=== PATIENT | female | born 1950 | race Caucasian/White ===

== ENCOUNTER 2017-04-02 17:25 | Inpatient (IN) | payer OTHER ==
[2017-04-02] MEDS ORDERED: Bisacodyl 10 MG Supp RECTAL PRN (17:54)
[2017-04-02] MEDS: Acetaminophen 325 MG Tab PO PRN (18:44)
[2017-04-02] MEDS ORDERED: Docusate Sodium 100 MG Cap PO PRN (18:49)
[2017-04-02] MEDS ORDERED: Morphine 2 MG/ML Syringe IVPUSH PRN (18:54)
[2017-04-02] MEDS ORDERED: Piperacillin/Tazobactam 3.375 GM in Sodium Chloride 0.9% 100 ML IV SCH (19:00)
[2017-04-02] MEDS: Piperacillin/Tazobactam 3.375 GM in Sodium Chloride 0.9% 100 ML IV SCH (20:40)
[2017-04-02] MEDS: oxyCODONE 5 MG Tab PO PRN (21:10)
[2017-04-03] MEDS: oxyCODONE 5 MG Tab PO PRN ×5 (01:06→21:26)
[2017-04-03] MEDS: Piperacillin/Tazobactam 3.375 GM in Sodium Chloride 0.9% 100 ML IV SCH ×4 (02:01→20:12)
--- NOTE | 2017-04-03 04:14 | HP ---
CHIEF COMPLAINT: Abdominal pain. BRIEF HISTORY OF PRESENT ILLNESS: Ms. Anju Leyva is a 66-year-old female who was seen by her primary care provider, Shakira Wilson NP, at clinic today. She presented with abdominal pain, mostly right lower quadrant, in the pelvic area. She said that this has been going on for the last 2 weeks and described as "it hurts" and was able to qualify any further. She denied any other associated symptoms. Ms. Wilson obtained a CT scan of the abdomen and pelvis with IV contrast. This study demonstrated numerous diverticula in the sigmoid colon with what appeared to be "dirty" fat with small amount of free fluid in the dependent cul-de-sac midline. There is an area of new abnormal appearance in this pubic symphysis when compared to previous study from 10/31/2016. Radiologist questioned whether this could be reinfection or postinflammatory scarring and osteonecrosis. There is multilevel thoracic and thoracolumbar disk disease. Labs were obtained before she was referred to the ER. White count was 11,300, hemoglobin and hematocrit were stable, platelets were normal. Comprehensive profile showed normal electrolytes. BUN and creatinine were 16 and 1.0 with a GFR of 56. Urinalysis was unremarkable. PAST MEDICAL HISTORY: Obesity. She had an episode of atrial fibrillation with RVR during surgery in November of 2015. She has history of coronary artery disease with an NSTEMI based on elevated cardiac enzymes. This atrial fibrillation with RVR happened during a procedure. 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 History of positive C. difficile toxin, November of 2015. PAST SURGICAL HISTORY: Cholecystectomy, tonsillectomy, upper and lower endoscopy. IMMUNIZATION HISTORY: Her last flu vaccine was on 07/22/2016. She received the shingles vaccine on 05/08/2016. She has never had any of the pneumococcal vaccines. SOCIAL HISTORY: She has never smoked. She does not drink alcohol on a regular basis. 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 She has been working she said for about 40 years. She went to school she is single and has no children. She did not serve in the . FAMILY HISTORY: She grew up in [facility]. Father with congestive heart failure. Mother was healthy until she developed Alzheimer's like dementia. She has one sister who had Crohn's disease, and one sister who is in good health and only has complaints of migraine. REVIEW OF SYSTEMS: She describes her pain as "it hurts", cannot qualify it any further. She has had no nausea, no vomiting. She occasionally felt cold. No blood by mouth or rectum. No chest pain or shortness of breath. No orthopnea. No recent falls or injuries. No recent use of antibiotics. No cough, sore throat, fever, or rash. PHYSICAL EXAMINATION: Vital Signs: Blood pressure 150/72, pulse 76, respiratory rate 18, oxygen saturation 99% on room air. Weight 245 pounds, height 5 feet 3 inches. HEENT: Unremarkable. ENT was clear. Chest: Showed clear but diminished bilateral breath sounds. Heart: Showed regular rate and rhythm. Abdomen: Obese, soft, benign, with mild tenderness in the upper epigastric area. Otherwise, no guarding or rebound. Extremities: Showed the legs to be heavy with some chronic edema. Neurological: She is intact. LABORATORY AND X-RAY DATA: Labs and x-rays were performed prior to admission as above. MEDICATION LIST: Please see [facility] for complete medication list. IMPRESSION: 1. Recurrent abdominal pain in this lady with previous history of osteomyelitis of the symphysis pubis. She was admitted to [facility] in [place] for an extended stay and was followed by Infectious Disease. 2. We have ordered an MRI of the pelvis to be performed tomorrow morning. It cannot be done with contrast as she received IV contrast for the CT scan today and the gadolinium cannot be given within 48 hours. 3. CLARE hose will be placed for VTE prophylaxis and she was started on enoxaparin 40 mg daily. 4. She has a history of atrial fibrillation with rapid ventricular rate, and her diltiazem will be continued. 5. When we told her that we were planning an MRI in the morning, she stated that she could not tolerate being in the tube. We explained to her that she will be going in feet first for the abdominal view. She will also be given headphone to listen to, and we ordered 5 mg lorazepam to be given in the morning to see if that will help her calm down somewhat. 6. Her usual medications will be continued. 7. Code status: Full code. CONDITION AT THE TIME OF ADMISSION: Hemodynamically stable. [facility] /[id number]
[2017-04-03] MEDS ORDERED: LORazepam 0.5 MG Tab PO ONE (07:15)
[2017-04-03] MEDS: Diltiazem 180 MG Cap.CD PO SCH (09:19)
[2017-04-03] MEDS: Enoxaparin 40 MG/0.4 ML Syringe SUBCUT SCH (09:20)
[2017-04-03] MEDS: Acetaminophen 325 MG Tab PO PRN (09:20)
[2017-04-03 09:41] LABS: CHLORIDE,CL 102 mmol/L (98-109); SODIUM,NA 140 mmol/L (138-146)
[2017-04-03] MEDS ORDERED: Potassium Chloride 10 MEQ Tab.ER PO ONE (11:48)
--- NOTE | 2017-04-03 13:35 | PCM.PN ---
- General Info Date of Service: 04/03/17 Admission Dx/Problem (Free Text): Diverticulitis Subjective Update: Patient presented with marked right flank and lower abdomen pain without urinary symptoms, nausea, vomiting, fever, diarrhea, blood in stool, black stool , any others symptoms other than chronic intermittent chills. Patient stated that the chills started after she had her pubic infection in November 2015. Today patient denies fever, chills, nausea, vomiting, diarrhea, any new symptoms. She is still having right flank pain and lower abdominal pain. She is still requiring oxycodone for pain control. - Patient Data Vitals - Most Recent: Last Vital Signs Temp 36.3 C 04/03/17 08:00 Pulse 72 04/03/17 08:00 Resp 20 04/03/17 08:00 BP 132/68 04/03/17 08:00 Pulse Ox 99 04/03/17 08:00 Weight - Most Recent: 111.13 kg I&O - Last 24 Hours: Intake & Output 04/02/17 04/03/17 04/03/17 22:59 06:59 14:59 Intake Total 104 109 120 Output Total 200 225 Balance -96 -116 120 Lab Results Last 24 Hours: Laboratory Results - last 24 hr 04/03/17 04/03/17 04/03/17 Range/Units 09:10 09:10 09:10 WBC 7.7 (5.0-10.0) 10^3/uL RBC 4.32 (4.2-5.4) 10^6/uL Hgb 12.3 D (12.0-16.0) g/dL Hct 37.4 (37.0-47.0) % MCV 86.6 D (80-100) fL MCH 28.5 (27.0-34.0) pg MCHC 32.9 L (33.0-35.0) g/dL Plt Count 258 (150-450) 10^3/uL ESR 31 H (0-20) mm/hr Sodium 140 (138-146) mmol/L Potassium 3.1 L (3.5-4.9) mmol/L Chloride 102 (98-109) mmol/L Carbon Dioxide 25 (24-29) mmol/L Anion Gap 16.1 BUN 13 (8-26) mg/dL Creatinine 0.8 (0.6-1.3) mg/dL Est Cr Clr Drug Dosing 58.77 mL/min Estimated GFR (MDRD) > 60 Glucose 115 H (70-105) mg/dL Calcium 1.17 C-Reactive Protein 11.0 H (0.0-1.3) mg/dL Med Orders - Current: Current Medications Acetaminophen (Tylenol) 650 mg PO Q4H PRN PRN Reason: Pain (mild 1-3 )/fever Last Admin: 04/03/17 09:20 Dose: 650 mg Bisacodyl (Dulcolax) 10 mg RECTAL DAILY PRN PRN Reason: Constipation Diltiazem HCl (Cardizem Cd) 180 mg PO DAILY [facility] Last Admin: 04/03/17 09:19 Dose: 180 mg Docusate Sodium (Colace) 100 mg PO Q48H PRN PRN Reason: Constipation Enoxaparin Sodium (Lovenox) 40 mg SUBCUT DAILY [facility] Last Admin: 04/03/17 09:20 Dose: 40 mg Piperacillin Sod/Tazobactam (Sod 3.375 gm/ Sodium Chloride) 100 mls @ 200 mls/ hr IV Q6H [facility] Last Infusion: 04/03/17 09:22 Dose: Infused Oxycodone HCl (Oxycodone) 5 mg PO Q4H PRN PRN Reason: Abdominal Pain Last Admin: 04/03/17 12:44 Dose: 5 mg Sodium Chloride (Saline Flush) 10 ml FLUSH ASDIRECTED PRN PRN Reason: Keep Vein Open Discontinued Medications Piperacillin Sod/Tazobactam (Sod 3.375 gm/ Sodium Chloride) 100 mls @ 200 mls/ hr IV Q6H [facility] Last Infusion: 04/02/17 20:40 Dose: Infused Lorazepam (Ativan) 0.5 mg PO ONETIME ONE Stop: 04/03/17 07:16 Last Admin: 04/03/17 07:09 Dose: 0.5 mg Morphine Sulfate (Morphine) 2 mg IVPUSH Q4H PRN PRN Reason: Pain Last Admin: 04/02/17 19:41 Dose: 2 mg Potassium Chloride (Klor-Con 10) 40 meq PO ONETIME ONE Stop: 04/03/17 11:49 Last Admin: 04/03/17 12:45 Dose: 40 meq - Exam General: Alert, Oriented, Cooperative, No Acute Distress. No: Severe Distress, Sedated, Lethargic, Obtunded HEENT: Pupils Equal, Pupils Reactive, EOMI, Mucous Membr. Moist/Hepburn Neck: Supple, Trachea Midline, No JVD Lungs: Clear to Auscultation, Normal Respiratory Effort Cardiovascular: Regular Rate, Regular Rhythm GI/Abdominal Exam: Soft, No Distention, No Mass, Tender (Lower abdomen), Other ( Overall difficult to assess due to body habitus) (Female) Exam: Deferred Back Exam: Normal Inspection, Full Range of Motion, CVA Tenderness (R). No: CVA Tenderness (L) Extremities: Normal Inspection, Normal Range of Motion, Non-Tender, No Pedal Edema, Normal Capillary Refill Skin: Warm, Dry, Intact Neurological: No New Focal Deficit Psy/Mental Status: Alert, Normal Affect, Normal Mood - Problem List & Annotations (1) Diverticulitis SNOMED Code(s): 980908263 Code(s): K57.92 - DVTRCLI OF INTEST, PART UNSP, W/O PERF OR ABSCESS W/O BLEED Status: Acute Current Visit: Yes (2) HTN, Benign essential hypertension SNOMED Code(s): 9935190 Code(s): I10 - ESSENTIAL (PRIMARY) HYPERTENSION Status: Chronic Current Visit: No (3) Atrial fibrillation SNOMED Code(s): 29277091 Code(s): I48.91 - UNSPECIFIED ATRIAL FIBRILLATION Status: Chronic Current Visit: Yes (4) History of non-ST elevation myocardial infarction (NSTEMI) SNOMED Code(s): 574871779 Code(s): I25.2 - OLD MYOCARDIAL INFARCTION Status: Chronic Current Visit : Yes - Problem List Review Problem List Initiated/Reviewed/Updated: Yes - My Orders Last 24 Hours: My Active Orders 04/03/17 08:51 Blood Culture x2 Reflex Set [OM.PC] Stat 04/03/17 09:10 CULTURE BLOOD [BC] Stat 04/03/17 09:15 CULTURE BLOOD [BC] Stat 04/03/17 11:07 CULTURE URINE [RM] Routine - Plan Plan:: Impression Lower Abdominal pain Diverticulitis Hypertension History of atrial fibrillation History of Coronary artery disease Plan: CT scan reported diverticulitis. There was concern about recurrent pubic osteomyelitis MRI was done to rule out recurrent pubic symphysis osteomyelitis. MRI reported or osteitis pubis (none-infectious inflammation) Patient was started on Zosyn I spoke to Dr. Hammer, infectious disease specialist from [place] who recommended continuing Zosyn until pain improves, possibly 4-5 days. Then oral Levaquin 750 mg by mouth every 12 hours and Flagyl 800 mg by mouth every 8 hours for total of 14 days of antibiotics -Patient is still requiring oxycodone for her pain Continue clear liquid diet Continue diltiazem for history of atrial fibrillation and hypertension Continue atorvastatin for history of coronary artery disease Continue Lovenox for DVT prophylaxis
[2017-04-03] MEDS ORDERED: Acetaminophen/HYDROcodone 325-10 MG Tab PO PRN (13:58)
[2017-04-03] MEDS: Sodium Chloride 0.9% 10 ML Syringe FLUSH PRN (20:12)
[2017-04-03] MEDS: atorvaSTATin 20 MG Tab PO SCH (20:12)
[2017-04-04] MEDS: Piperacillin/Tazobactam 3.375 GM in Sodium Chloride 0.9% 100 ML IV SCH ×4 (02:59→20:05)
[2017-04-04] MEDS: Sodium Chloride 0.9% 10 ML Syringe FLUSH PRN ×5 (02:59→20:05)
[2017-04-04] MEDS: oxyCODONE 5 MG Tab PO PRN ×3 (04:06→20:04)
[2017-04-04] MEDS: Multivitamins,Therapeutic Tab PO SCH (09:01)
[2017-04-04] MEDS: Diltiazem 180 MG Cap.CD PO SCH (09:01)
[2017-04-04] MEDS: Enoxaparin 40 MG/0.4 ML Syringe SUBCUT SCH (09:01)
--- NOTE | 2017-04-04 10:47 | PCM.PN ---
- General Info Date of Service: 04/04/17 Admission Dx/Problem (Free Text): Diverticulitis Subjective Update: Patient was directly admitted from [facility] in [place], [place] with marked right flank and lower abdomen pain without urinary symptoms, nausea, vomiting, fever, diarrhea, blood in stool, black stool, any others symptoms other than chronic intermittent chills. Patient stated that the chills started after she had her pubic infection in November 2015. Blood WBC 11,300. Creatinine 1.0. Urinalysis reported moderate leukocyte esterase and blood, microscope reported 5 -10 WBCs 5-[address] abdomen and pelvis with contrast reported numerous diverticula in the sigmoid colon with what appeared to be dirty fat with small amount of free fluid in the dependent all the sac midline. And radiologist had concern of reinfected pubic symphysis. 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 Patient was started initially on Zosyn on day of admission. I counseled with Dr. Hammer, infectious disease specialist from [place] over the phone who recommended continuing Zosyn until pain improves, possibly 4-5 days. Then oral Levaquin 750 mg by mouth every 12 hours and Flagyl 500 mg by mouth every 8 hours for total of 14 days of antibiotics Urine culture was done prior to starting the antibiotic. Blood cultures was done next day after starting antibiotic. Today patient denies fever, chills, nausea, vomiting, diarrhea, any new symptoms. She stated that her flank and lower abdominal pain are better. She'll still feeling weak. She denies getting worse. She is still requiring less oxycodone for pain control. - Patient Data Vitals - Most Recent: Last Vital Signs Temp 37.4 C 04/04/17 07:54 Pulse 61 04/04/17 07:54 Resp 20 04/04/17 07:54 BP 130/59 L 04/04/17 07:54 Pulse Ox 99 04/04/17 07:54 Weight - Most Recent: 111.13 kg I&O - Last 24 Hours: Intake & Output 04/03/17 04/04/17 04/04/17 22:59 06:59 14:59 Intake Total 340 200 392 Balance 340 200 392 Jef Results Last 24 Hours: Microbiology 04/03/17 09:15 Aerobic Blood Culture - Preliminary Blood - Venous - Lab Draw NO GROWTH AFTER 1 DAY Anaerobic Blood Culture - Preliminary NO GROWTH AFTER 1 DAY 04/03/17 09:10 Aerobic Blood Culture - Preliminary Blood - Venous NO GROWTH AFTER 1 DAY Anaerobic Blood Culture - Preliminary NO GROWTH AFTER 1 DAY 04/02/17 14:59 Urine Culture - Preliminary Urine, Voided Med Orders - Current: Current Medications Acetaminophen (Tylenol) 650 mg PO Q4H PRN PRN Reason: Pain (mild 1-3 )/fever Last Admin: 04/03/17 09:20 Dose: 650 mg Hydrocodone Bitart/Acetaminophen (Holabird 325-10 Mg) 1 tab PO Q6H PRN PRN Reason: Pain (moderate 4-6) Atorvastatin Calcium (Lipitor) 80 mg PO BEDTIME [facility] Last Admin: 04/03/17 20:12 Dose: 80 mg Bisacodyl (Dulcolax) 10 mg RECTAL DAILY PRN PRN Reason: Constipation Diltiazem HCl (Cardizem Cd) 180 mg PO DAILY [facility] Last Admin: 04/04/17 09:01 Dose: 180 mg Docusate Sodium (Colace) 100 mg PO Q48H PRN PRN Reason: Constipation Enoxaparin Sodium (Lovenox) 40 mg SUBCUT DAILY [facility] Last Admin: 04/04/17 09:01 Dose: 40 mg Piperacillin Sod/Tazobactam (Sod 3.375 gm/ Sodium Chloride) 100 mls @ 200 mls/ hr IV Q6H [facility] Last Infusion: 04/04/17 09:49 Dose: Infused Multivitamins (Thera) 1 each PO DAILY [facility] Last Admin: 04/04/17 09:01 Dose: 1 each Oxycodone HCl (Oxycodone) 5 mg PO Q4H PRN PRN Reason: Abdominal Pain Last Admin: 04/04/17 04:06 Dose: 5 mg Sodium Chloride (Saline Flush) 10 ml FLUSH ASDIRECTED PRN PRN Reason: Keep Vein Open Last Admin: 04/04/17 09:50 Dose: 10 ml Discontinued Medications Piperacillin Sod/Tazobactam (Sod 3.375 gm/ Sodium Chloride) 100 mls @ 200 mls/ hr IV Q6H [facility] Last Infusion: 04/02/17 20:40 Dose: Infused Lorazepam (Ativan) 0.5 mg PO ONETIME ONE Stop: 04/03/17 07:16 Last Admin: 04/03/17 07:09 Dose: 0.5 mg Morphine Sulfate (Morphine) 2 mg IVPUSH Q4H PRN PRN Reason: Pain Last Admin: 04/02/17 19:41 Dose: 2 mg Oxycodone HCl (Oxycodone) 5 mg PO Q4H PRN PRN Reason: Abdominal Pain Last Admin: 04/03/17 12:44 Dose: 5 mg Potassium Chloride (Klor-Con 10) 40 meq PO ONETIME ONE Stop: 04/03/17 11:49 Last Admin: 04/03/17 12:45 Dose: 40 meq - Exam General: Alert, Oriented, Cooperative, No Acute Distress, Other (She is still having ill-looking. Slightly better than yesterday). No: Severe Distress, Sedated, Lethargic, Obtunded HEENT: Pupils Equal, Pupils Reactive, EOMI, Mucous Membr. Moist/Protivin Neck: Supple, Trachea Midline, No JVD Lungs: Clear to Auscultation, Normal Respiratory Effort Cardiovascular: Regular Rate, Regular Rhythm GI/Abdominal Exam: Normal Bowel Sounds, Soft, No Organomegaly, No Distention, No Mass, Tender (In lower abdomen) (Female) Exam: Deferred Back Exam: Normal Inspection, Full Range of Motion, CVA Tenderness (R) (Less tender than yesterday). No: CVA Tenderness (L) Extremities: Normal Inspection, Normal Range of Motion, Non-Tender, No Pedal Edema, Normal Capillary Refill Skin: Warm, Dry, Intact Neurological: No New Focal Deficit Psy/Mental Status: Alert, Normal Affect, Normal Mood - Problem List & Annotations (1) Diverticulitis SNOMED Code(s): 726904452 Code(s): K57.92 - DVTRCLI OF INTEST, PART UNSP, W/O PERF OR ABSCESS W/O BLEED Status: Acute Current Visit: Yes (2) HTN, Benign essential hypertension SNOMED Code(s): 6706464 Code(s): I10 - ESSENTIAL (PRIMARY) HYPERTENSION Status: Chronic Current Visit: No (3) Atrial fibrillation SNOMED Code(s): 91616773 Code(s): I48.91 - UNSPECIFIED ATRIAL FIBRILLATION Status: Chronic Current Visit: Yes (4) History of non-ST elevation myocardial infarction (NSTEMI) SNOMED Code(s): 393590051 Code(s): I25.2 - OLD MYOCARDIAL INFARCTION Status: Chronic Current Visit : Yes (5) Hypokalemia SNOMED Code(s): 45811371 Code(s): E87.6 - HYPOKALEMIA Status: Acute Current Visit: Yes - Problem List Review Problem List Initiated/Reviewed/Updated: Yes - My Orders Last 24 Hours: My Active Orders 04/03/17 11:07 CULTURE URINE [RM] Routine 04/03/17 13:58 Acetaminophen/HYDROcodone [Holabird 325-10 MG] 1 tab PO Q6H PRN oxyCODONE 5 mg PO Q4H PRN 04/03/17 14:54 Cooling Warming Measures [RC] .PRN K Pad [Heat Therapy] [OM.PC] Routine 04/03/17 21:00 atorvaSTATin [Lipitor] 80 mg PO BEDTIME 04/04/17 09:00 Multivitamins,Therapeutic [Thera] 1 each PO DAILY 04/04/17 10:32 BASIC METABOLIC PANEL,BMP [CHEM] Routine CBC WITH AUTO DIFF [HEME] Routine CRP [C-REACTIVE PROTEIN] [CHEM] Routine 04/04/17 Lunch Full Liquid Diet [DIET] - Plan Plan:: Impression Active problem list Lower Abdominal pain Diverticulitis Hypokalemia Chronic problem list Hypertension History of atrial fibrillation History of Coronary artery disease Plan: CT scan reported diverticulitis. There was concern about recurrent pubic osteomyelitis MRI was done to rule out recurrent pubic symphysis osteomyelitis. MRI reported or osteitis pubis (none-infectious inflammation) Patient was started on Zosyn I spoke to Dr. Hammer, infectious disease specialist from [place] who recommended continuing Zosyn until pain improves, possibly 4-5 days. Then oral Levaquin 750 mg by mouth every 12 hours and Flagyl 500 mg by mouth every 8 hours for total of 14 days of antibiotics -Patient is still requiring oxycodone for her pain, but less frequently -change clear liquid diet to full liquid diet -Patient received oral potassium chloride 40 mEq yesterdah -Repeat lab tomorrow Continue diltiazem for history of atrial fibrillation and hypertension Continue atorvastatin for history of coronary artery disease Continue Lovenox for DVT prophylaxis
[2017-04-04] MEDS: atorvaSTATin 20 MG Tab PO SCH (20:04)
[2017-04-05] MEDS: Piperacillin/Tazobactam 3.375 GM in Sodium Chloride 0.9% 100 ML IV SCH ×4 (02:55→20:25)
[2017-04-05] MEDS: Sodium Chloride 0.9% 10 ML Syringe FLUSH PRN ×2 (02:55→08:00)
[2017-04-05 06:52] LABS: CHLORIDE,CL 105 mmol/L (101-111); SODIUM,NA 140 mmol/L (135-145)
[2017-04-05] MEDS: Diltiazem 180 MG Cap.CD PO SCH (08:00)
[2017-04-05] MEDS: Multivitamins,Therapeutic Tab PO SCH (08:00)
[2017-04-05] MEDS: Enoxaparin 40 MG/0.4 ML Syringe SUBCUT SCH (08:00)
--- NOTE | 2017-04-05 09:31 | PCM.PN ---
- General Info Date of Service: 04/05/17 Admission Dx/Problem (Free Text): Diverticulitis Subjective Update: Patient was directly admitted from [facility] in [place], [place] with marked right flank and lower abdomen pain without urinary symptoms, nausea, vomiting, fever, diarrhea, blood in stool, black stool, any others symptoms other than chronic intermittent chills. Patient stated that the chills started after she had her pubic infection in November 2015. Blood WBC 11,300. Creatinine 1.0. Urinalysis reported moderate leukocyte esterase and blood, microscope reported 5 -10 WBCs 5-[address] abdomen and pelvis with contrast reported numerous diverticula in the sigmoid colon with what appeared to be dirty fat with small amount of free fluid in the dependent all the sac midline. And radiologist had concern of reinfected pubic symphysis. 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 Patient was started initially on Zosyn on day of admission. I counseled with Dr. Hammer, infectious disease specialist from [place] over the phone who recommended continuing Zosyn until pain improves, possibly 4-5 days. Then oral Levaquin 750 mg by mouth every 12 hours and Flagyl 500 mg by mouth every 8 hours for total of 14 days of antibiotics Urine culture was done prior to starting the antibiotic and grew E.Coli which is sensitive to penicillin. Blood cultures was done next day after starting antibiotic. Today patient denies fever, chills, nausea, vomiting, diarrhea, any new symptoms. She said that her flank and lower abdominal pain are better and energy is better. She denies getting worse. She is still requiring less oxycodone for pain control. - Patient Data Vitals - Most Recent: Last Vital Signs Temp 37.6 C 04/05/17 07:12 Pulse 66 04/05/17 07:12 Resp 20 04/05/17 07:12 BP 137/75 04/05/17 07:12 Pulse Ox 99 04/05/17 07:12 Weight - Most Recent: 111.13 kg I&O - Last 24 Hours: Intake & Output 04/04/17 04/05/17 04/05/17 22:59 06:59 14:59 Intake Total 429 104 240 Balance 429 104 240 Lab Results Last 24 Hours: Laboratory Results - last 24 hr 04/04/17 04/05/17 04/05/17 Range/Units 10:40 06:12 06:12 WBC Cancelled 5.7 RBC Cancelled 3.81 L Hgb Cancelled 10.9 L Hct Cancelled 33.2 L MCV Cancelled 87.1 MCH Cancelled 28.6 MCHC Cancelled 32.8 L Plt Count Cancelled 227 Neut % (Auto) Cancelled 58.1 Lymph % (Auto) Cancelled 29.2 Pender % (Auto) Cancelled 10.2 H Eos % (Auto) Cancelled 1.8 Baso % (Auto) Cancelled 0.7 Add Manual Diff Cancelled Manual Slide Review Cancelled ESR 39 H (0-20) mm/hr Sodium 140 (135-145) mmol/L Potassium 3.9 (3.6-5.0) mmol/L Chloride 105 (101-111) mmol/L Carbon Dioxide 26.0 (21.0-31.0) mmol/L Anion Gap 12.9 BUN 10 (7-18) mg/dL Creatinine 0.8 (0.6-1.3) mg/dL Est Cr Clr Drug Dosing 58.77 mL/min Estimated GFR (MDRD) > 60 BUN/Creatinine Ratio 12.50 Glucose 79 (74-105) mg/dL Calcium 8.7 (8.4-10.2) mg/dl Total Bilirubin 1.2 H (0.2-1.0) mg/dL AST 51 H (10-42) IU/L ALT 114 H (10-60) IU/L Alkaline Phosphatase 111 (42-121) IU/L C-Reactive Protein (0.0-1.3) mg/dL Total Protein 6.0 L (6.7-8.2) g/dl Albumin 2.9 L (3.2-5.5) g/dl Globulin 3.1 Albumin/Globulin Ratio 0.94 04/05/17 Range/Units 06:12 WBC RBC Hgb Hct MCV MCH MCHC Plt Count Neut % (Auto) Lymph % (Auto) Pender % (Auto) Eos % (Auto) Baso % (Auto) Add Manual Diff Manual Slide Review ESR (0-20) mm/hr Sodium (135-145) mmol/L Potassium (3.6-5.0) mmol/L Chloride (101-111) mmol/L Carbon Dioxide (21.0-31.0) mmol/L Anion Gap BUN (7-18) mg/dL Creatinine (0.6-1.3) mg/dL Est Cr Clr Drug Dosing mL/min Estimated GFR (MDRD) BUN/Creatinine Ratio Glucose (74-105) mg/dL Calcium (8.4-10.2) mg/dl Total Bilirubin (0.2-1.0) mg/dL AST (10-42) IU/L ALT (10-60) IU/L Alkaline Phosphatase (42-121) IU/L C-Reactive Protein 5.1 H (0.0-1.3) mg/dL Total Protein (6.7-8.2) g/dl Albumin (3.2-5.5) g/dl Globulin Albumin/Globulin Ratio Jef Results Last 24 Hours: Microbiology 04/03/17 09:15 Aerobic Blood Culture - Preliminary Blood - Venous - Lab Draw NO GROWTH AFTER 2 DAYS Anaerobic Blood Culture - Preliminary NO GROWTH AFTER 2 DAYS 04/03/17 09:10 Aerobic Blood Culture - Preliminary Blood - Venous NO GROWTH AFTER 2 DAYS Anaerobic Blood Culture - Preliminary NO GROWTH AFTER 2 DAYS 04/02/17 14:59 Urine Culture - Final Urine, Voided Escherichia Coli Med Orders - Current: Current Medications Acetaminophen (Tylenol) 650 mg PO Q4H PRN PRN Reason: Pain (mild 1-3 )/fever Last Admin: 04/03/17 09:20 Dose: 650 mg Hydrocodone Bitart/Acetaminophen ([place] 325-10 Mg) 1 tab PO Q6H PRN PRN Reason: Pain (moderate 4-6) Atorvastatin Calcium (Lipitor) 80 mg PO BEDTIME [facility] Last Admin: 04/04/17 20:04 Dose: 80 mg Bisacodyl (Dulcolax) 10 mg RECTAL DAILY PRN PRN Reason: Constipation Diltiazem HCl (Cardizem Cd) 180 mg PO DAILY [facility] Last Admin: 04/05/17 08:00 Dose: 180 mg Docusate Sodium (Colace) 100 mg PO Q48H PRN PRN Reason: Constipation Enoxaparin Sodium (Lovenox) 40 mg SUBCUT DAILY [facility] Last Admin: 04/05/17 08:00 Dose: 40 mg Piperacillin Sod/Tazobactam (Sod 3.375 gm/ Sodium Chloride) 100 mls @ 200 mls/ hr IV Q6H [facility] Last Infusion: 04/05/17 09:24 Dose: Infused Multivitamins (Thera) 1 each PO DAILY [facility] Last Admin: 04/05/17 08:00 Dose: 1 each Oxycodone HCl (Oxycodone) 5 mg PO Q4H PRN PRN Reason: Abdominal Pain Last Admin: 04/04/17 20:04 Dose: 5 mg Sodium Chloride (Saline Flush) 10 ml FLUSH ASDIRECTED PRN PRN Reason: Keep Vein Open Last Admin: 04/05/17 08:00 Dose: 10 ml Discontinued Medications Piperacillin Sod/Tazobactam (Sod 3.375 gm/ Sodium Chloride) 100 mls @ 200 mls/ hr IV Q6H [facility] Last Infusion: 04/02/17 20:40 Dose: Infused Lorazepam (Ativan) 0.5 mg PO ONETIME ONE Stop: 04/03/17 07:16 Last Admin: 04/03/17 07:09 Dose: 0.5 mg Morphine Sulfate (Morphine) 2 mg IVPUSH Q4H PRN PRN Reason: Pain Last Admin: 04/02/17 19:41 Dose: 2 mg Oxycodone HCl (Oxycodone) 5 mg PO Q4H PRN PRN Reason: Abdominal Pain Last Admin: 04/03/17 12:44 Dose: 5 mg Potassium Chloride (Klor-Con 10) 40 meq PO ONETIME ONE Stop: 04/03/17 11:49 Last Admin: 04/03/17 12:45 Dose: 40 meq - Exam General: Alert, Oriented, Cooperative, No Acute Distress, Other (looks better) HEENT: Pupils Equal, Pupils Reactive, EOMI, Mucous Membr. Moist/[place] Neck: Supple, Trachea Midline, No JVD, No Thyromegaly Lungs: Clear to Auscultation, Normal Respiratory Effort Cardiovascular: Regular Rate, Regular Rhythm GI/Abdominal Exam: Normal Bowel Sounds, Soft, No Organomegaly, No Distention, No Abnormal Bruit, No Mass, Tender (mild generalized ) (Female) Exam: Deferred Back Exam: Normal Inspection, Full Range of Motion, CVA Tenderness (R) ( tederness is not as marked as it was ). No: CVA Tenderness (L) Extremities: Normal Inspection, Normal Range of Motion, Non-Tender, No Pedal Edema, Normal Capillary Refill Skin: Dry, Intact. No: Rash Neurological: No New Focal Deficit Psy/Mental Status: Alert, Normal Affect, Normal Mood - Problem List & Annotations (1) Diverticulitis SNOMED Code(s): 821850510 Code(s): K57.92 - DVTRCLI OF INTEST, PART UNSP, W/O PERF OR ABSCESS W/O BLEED Status: Acute Current Visit: Yes (2) HTN, Benign essential hypertension SNOMED Code(s): 6703983 Code(s): I10 - ESSENTIAL (PRIMARY) HYPERTENSION Status: Chronic Current Visit: No (3) Atrial fibrillation SNOMED Code(s): 13265421 Code(s): I48.91 - UNSPECIFIED ATRIAL FIBRILLATION Status: Chronic Current Visit: Yes (4) History of non-ST elevation myocardial infarction (NSTEMI) SNOMED Code(s): 128753454 Code(s): I25.2 - OLD MYOCARDIAL INFARCTION Status: Chronic Current Visit : Yes (5) Hypokalemia SNOMED Code(s): 47361511 Code(s): E87.6 - HYPOKALEMIA Status: Acute Current Visit: Yes - Problem List Review Problem List Initiated/Reviewed/Updated: Yes - My Orders Last 24 Hours: My Active Orders 04/04/17 09:00 Multivitamins,Therapeutic [Thera] 1 each PO DAILY 04/04/17 Lunch Full Liquid Diet [DIET] 04/05/17 Breakfast Advance Diet Instructions [DIET] - Plan Plan:: Impression Active problem list Lower Abdominal pain Diverticulitis Complicated urinary tract infection Hypokalemia, resolved Generalized weakness Elevated liver enzymes, mild possible due to her current diverticulitis and UTI infection, vs atorvastatin vs fatty lvier disease vs other undiagnosed etiology Chronic problem list Hypertension History of atrial fibrillation History of Coronary artery disease Morbid obesity Plan: CT scan reported diverticulitis. There was concern about recurrent pubic osteomyelitis MRI was done to rule out recurrent pubic symphysis osteomyelitis. MRI reported or osteitis pubis (none-infectious inflammation) Patient was started on Zosyn I spoke to Dr. Hammer, infectious disease specialist from [place] who recommended continuing Zosyn until pain improves, possibly 4-5 days. Then oral Levaquin 750 mg by mouth every 12 hours and Flagyl 500 mg by mouth every 8 hours for total of 14 days of antibiotics -Patient is requiring less oxycodone for her pain -change full liquid diet to soft diet -PT to evalaute and treat tomorrow -Patient was encourage to get out of bed and ambulate and sit in chair more often -She needs follow up for elevated liver enzymes with PCP after discharge Continue diltiazem for history of atrial fibrillation and hypertension Continue atorvastatin for history of coronary artery disease Continue Lovenox for DVT prophylaxis
[2017-04-05] MEDS: Acetaminophen 325 MG Tab PO PRN (13:41)
[2017-04-05] MEDS: atorvaSTATin 20 MG Tab PO SCH (21:29)
[2017-04-06] MEDS: oxyCODONE 5 MG Tab PO PRN (02:35)
[2017-04-06] MEDS: Piperacillin/Tazobactam 3.375 GM in Sodium Chloride 0.9% 100 ML IV SCH ×4 (02:35→20:14)
--- NOTE | 2017-04-06 08:23 | PCM.PN ---
- General Info Date of Service: 04/06/17 Admission Dx/Problem (Free Text): Diverticulitis Subjective Update: Patient was directly admitted from [facility] in [place], [place] with marked right flank and lower abdomen pain without urinary symptoms, nausea, vomiting, fever, diarrhea, blood in stool, black stool, any others symptoms other than chronic intermittent chills. Patient stated that the chills started after she had her pubic infection in November 2015. Blood WBC 11,300. Creatinine 1.0. Urinalysis reported moderate leukocyte esterase and blood, microscope reported 5 -10 WBCs 5-[address] abdomen and pelvis with contrast reported numerous diverticula in the sigmoid colon with what appeared to be dirty fat with small amount of free fluid in the dependent all the sac midline. And radiologist had concern of reinfected pubic symphysis. 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 Patient was started initially on Zosyn on day of admission. I counseled with Dr. Hammer, infectious disease specialist from [place] over the phone who recommended continuing Zosyn until pain improves, possibly 4-5 days. Then oral Levaquin 750 mg by mouth every 12 hours and Flagyl 500 mg by mouth every 8 hours for total of 14 days of antibiotics Urine culture was done prior to starting the antibiotic and grew E.Coli which is sensitive to penicillin. Blood cultures was done next day after starting antibiotic and have no growth after 2 days Yesterday patient's pain improved during the day however it wakes her up at 2 AM this morning and she had oxycodone. This morning patient stated that her pain improved one point from yesterday morning and now rates her pain at 3/10 on pain scale. Today she denies fever, chills, nausea, vomiting, diarrhea, any new symptoms. She said that her energy is better. She denies getting worse. - Patient Data Vitals - Most Recent: Last Vital Signs Temp 36.8 C 04/06/17 07:51 Pulse 70 04/06/17 07:51 Resp 20 04/06/17 07:51 BP 155/69 H 04/06/17 07:51 Pulse Ox 99 04/06/17 07:51 Weight - Most Recent: 111.13 kg I&O - Last 24 Hours: Intake & Output 04/05/17 04/06/17 04/06/17 22:59 06:59 14:59 Intake Total 471 150 Balance 471 150 Jef Results Last 24 Hours: Microbiology 04/03/17 09:15 Aerobic Blood Culture - Preliminary Blood - Venous - Lab Draw NO GROWTH AFTER 2 DAYS Anaerobic Blood Culture - Preliminary NO GROWTH AFTER 2 DAYS 04/03/17 09:10 Aerobic Blood Culture - Preliminary Blood - Venous NO GROWTH AFTER 2 DAYS Anaerobic Blood Culture - Preliminary NO GROWTH AFTER 2 DAYS 04/02/17 14:59 Urine Culture - Final Urine, Voided Escherichia Coli Med Orders - Current: Current Medications Acetaminophen (Tylenol) 650 mg PO Q4H PRN PRN Reason: Pain (mild 1-3 )/fever Last Admin: 04/05/17 13:41 Dose: 650 mg Hydrocodone Bitart/Acetaminophen ([place] 325-10 Mg) 1 tab PO Q6H PRN PRN Reason: Pain (moderate 4-6) Atorvastatin Calcium (Lipitor) 80 mg PO BEDTIME [facility] Last Admin: 04/05/17 21:29 Dose: 80 mg Bisacodyl (Dulcolax) 10 mg RECTAL DAILY PRN PRN Reason: Constipation Diltiazem HCl (Cardizem Cd) 180 mg PO DAILY [facility] Last Admin: 04/05/17 08:00 Dose: 180 mg Docusate Sodium (Colace) 100 mg PO Q48H PRN PRN Reason: Constipation Enoxaparin Sodium (Lovenox) 40 mg SUBCUT DAILY [facility] Last Admin: 04/05/17 08:00 Dose: 40 mg Piperacillin Sod/Tazobactam (Sod 3.375 gm/ Sodium Chloride) 100 mls @ 200 mls/ hr IV Q6H [facility] Last Admin: 04/06/17 02:35 Dose: 200 mls/hr Multivitamins (Thera) 1 each PO DAILY [facility] Last Admin: 04/05/17 08:00 Dose: 1 each Oxycodone HCl (Oxycodone) 5 mg PO Q4H PRN PRN Reason: Abdominal Pain Last Admin: 04/06/17 02:35 Dose: 5 mg Sodium Chloride (Saline Flush) 10 ml FLUSH ASDIRECTED PRN PRN Reason: Keep Vein Open Last Admin: 04/05/17 08:00 Dose: 10 ml Discontinued Medications Piperacillin Sod/Tazobactam (Sod 3.375 gm/ Sodium Chloride) 100 mls @ 200 mls/ hr IV Q6H [facility] Last Infusion: 04/02/17 20:40 Dose: Infused Lorazepam (Ativan) 0.5 mg PO ONETIME ONE Stop: 04/03/17 07:16 Last Admin: 04/03/17 07:09 Dose: 0.5 mg Morphine Sulfate (Morphine) 2 mg IVPUSH Q4H PRN PRN Reason: Pain Last Admin: 04/02/17 19:41 Dose: 2 mg Oxycodone HCl (Oxycodone) 5 mg PO Q4H PRN PRN Reason: Abdominal Pain Last Admin: 04/03/17 12:44 Dose: 5 mg Potassium Chloride (Klor-Con 10) 40 meq PO ONETIME ONE Stop: 04/03/17 11:49 Last Admin: 04/03/17 12:45 Dose: 40 meq - Exam General: Alert, Oriented, Cooperative, No Acute Distress, Other (Sitting in recliner). No: Moderate Distress, Severe Distress, Sedated, Lethargic, Obtunded HEENT: Pupils Equal, Pupils Reactive, EOMI, Mucous Membr. Moist/[place] Neck: Supple, Trachea Midline, No JVD Lungs: Clear to Auscultation, Normal Respiratory Effort. No: Crackles, Rales, Rhonchi, Rub, Stridor, Wheezing Cardiovascular: Regular Rate, Regular Rhythm. No: Bradycardia, Tachycardia, Murmurs GI/Abdominal Exam: Normal Bowel Sounds, Soft, No Organomegaly, No Distention, No Abnormal Bruit, No Mass, Tender (Mild to moderate generalized tenderness) (Female) Exam: Deferred Back Exam: CVA Tenderness (R). No: CVA Tenderness (L) Extremities: Normal Inspection, Normal Range of Motion, Non-Tender, No Pedal Edema, Normal Capillary Refill Skin: Dry, Intact. No: Rash Neurological: No New Focal Deficit Psy/Mental Status: Alert, Normal Affect, Normal Mood - Problem List & Annotations (1) Diverticulitis SNOMED Code(s): 815259275 Code(s): K57.92 - DVTRCLI OF INTEST, PART UNSP, W/O PERF OR ABSCESS W/O BLEED Status: Acute Current Visit: Yes (2) HTN, Benign essential hypertension SNOMED Code(s): 7996196 Code(s): I10 - ESSENTIAL (PRIMARY) HYPERTENSION Status: Chronic Current Visit: No (3) Atrial fibrillation SNOMED Code(s): 37796944 Code(s): I48.91 - UNSPECIFIED ATRIAL FIBRILLATION Status: Chronic Current Visit: Yes (4) History of non-ST elevation myocardial infarction (NSTEMI) SNOMED Code(s): 777664115 Code(s): I25.2 - OLD MYOCARDIAL INFARCTION Status: Chronic Current Visit : Yes (5) Hypokalemia SNOMED Code(s): 91429858 Code(s): E87.6 - HYPOKALEMIA Status: Acute Current Visit: Yes - Problem List Review Problem List Initiated/Reviewed/Updated: Yes - My Orders Last 24 Hours: My Active Orders 04/05/17 09:28 Consult to Physical Therapy [PT Evaluation and Treatment] [CONS] Routine 04/05/17 Lunch Soft Diet [DIET] 04/07/17 05:11 CBC WITH AUTO DIFF [HEME] AM COMPREHENSIVE METABOLIC PN,CMP [CHEM] AM CRP [C-REACTIVE PROTEIN] [CHEM] AM - Plan Plan:: Impression Active problem list Lower Abdominal pain Diverticulitis Complicated urinary tract infection Hypokalemia, resolved Generalized weakness Elevated liver enzymes, mild possible due to her current diverticulitis and UTI infection, vs atorvastatin vs fatty lvier disease vs other undiagnosed etiology Chronic problem list Hypertension History of atrial fibrillation History of Coronary artery disease Morbid obesity Plan: CT scan on admission reported diverticulitis. There was concern about recurrent pubic osteomyelitis MRI was done the day after admission to rule out recurrent pubic symphysis osteomyelitis. MRI reported or osteitis pubis (none-infectious inflammation) Patient was started on Zosyn I spoke to Dr. Hammer, infectious disease specialist from [place] who recommended continuing Zosyn until pain improves, possibly 4-5 days. Then oral Levaquin 750 mg by mouth every 12 hours and Flagyl 500 mg by mouth every 8 hours for total of 14 days of antibiotics -Patient is still requiring oxycodone for her pain -Continue soft diet -PT to evalaute and treat -Patient is encourage to get out of bed and ambulate and sit in chair more often -She needs follow up for elevated liver enzymes with PCP after discharge -If pain does not improve significantly by tomorrow then I will consider repeating CAT scan of the abdomen and pelvis with contrast Continue diltiazem for history of atrial fibrillation and hypertension Continue atorvastatin for history of coronary artery disease Continue Lovenox for DVT prophylaxis
[2017-04-06] MEDS: Multivitamins,Therapeutic Tab PO SCH (08:29)
[2017-04-06] MEDS: Diltiazem 180 MG Cap.CD PO SCH (08:29)
[2017-04-06] MEDS: Sodium Chloride 0.9% 10 ML Syringe FLUSH PRN ×3 (08:30→21:21)
[2017-04-06] MEDS: Enoxaparin 40 MG/0.4 ML Syringe SUBCUT SCH (08:30)
[2017-04-06] MEDS: atorvaSTATin 20 MG Tab PO SCH (20:12)
[2017-04-07] MEDS: Piperacillin/Tazobactam 3.375 GM in Sodium Chloride 0.9% 100 ML IV SCH ×3 (01:51→14:17)
[2017-04-07] MEDS: Sodium Chloride 0.9% 10 ML Syringe FLUSH PRN ×2 (01:51→14:18)
[2017-04-07 06:56] LABS: CHLORIDE,CL 104 mmol/L (101-111); SODIUM,NA 140 mmol/L (135-145)
[2017-04-07 07:00] VITALS: BP 138/85
[2017-04-07] MEDS ORDERED: Iopamidol 612 MG/ML 100 ML Bottle IVPUSH ONE (07:44)
[2017-04-07] MEDS: Barium Sulfate w/v 2.1% Oral Susp 450 ML Bottle PO ONE ×2 (09:10→11:11)
[2017-04-07] MEDS: Enoxaparin 40 MG/0.4 ML Syringe SUBCUT SCH (10:07)
[2017-04-07] MEDS: Multivitamins,Therapeutic Tab PO SCH (10:07)
[2017-04-07] MEDS: Diltiazem 180 MG Cap.CD PO SCH (10:07)
--- NOTE | 2017-04-07 14:11 | CT ---
CLINICAL HISTORY: 66-year-old 248 pound hypertensive female hospitalized with abdominal/right flank p ain and "diverticulitis" (white blood cell count 11,[address] exam 02 April 2017 that re vealed "sigmoid diverticulitis and abnormal appearance pubic symphysis"). This patient has a history of "osteomyelitis pubic symphysis" (MRI November 2015). SCAN TECHNIQUE: Volume acquisition of data from the abdomen and pelvis obtained after oral ingestion 2 bottles Redicat barium and during the intravenous administration 100 cc nonionic Isovue contrast wh ile the patient was lying supine Siemens multislice scanner [place], [place]. All data archived in the PAC system for storage, reformatting and study. INTERPRETATION: 1. Evidence of apparent gastric bypass surgery. Cholecystectomy. 2. Chronic multilevel mid thoracic and lower thoracic/lumbar disc disease with hypertrophic arthritic reactive changes. 3. Numerous [place] diverticula concentrated in the sigmoid colon without current signs of pericolo jovi inflammatory "dirty" peritoneal fat, abscess or mechanical bowel obstruction. Normal appendix RLQ . No lymphadenopathy. 4. No new renal cortical mass lesion, inflammatory changes, nephrolithiasis or signs of obstructive u ropathy. Empty bladder. 5. Fragmentation/sclerosis pubic symphysis and surrounding soft tissue swelling ("mass") stable and u nchanged. 6. No new signs of pelvic or abdominal mass lesion, pelvic, mesenteric, retroperitoneal lymphadenopat hy, mechanical bowel obstruction, ascites or free intraperitoneal air. 7. Lung bases clear. Normal cardiac silhouette. Calcifications normal caliber aortoiliac vessels. CONCLUSION: Improvement, i.e., sigmoid diverticulosis without obvious inflammation. Abnormality pubic symphysis (see above) stable and unchanged.
--- NOTE | 2017-04-07 15:27 | PCM.DCSUM1 ---
Discharge Summary - Hospital Course Free Text/Narrative:: 66-year-old female with past medical history of obesity, atrial fibrillation, coronary artery disease, and NSTEMI who was directly admitted from [facility] in [place], [place] with marked right flank and lower abdomen pain without urinary symptoms, nausea, vomiting, fever, diarrhea, blood in stool, black stool , any others symptoms other than chronic intermittent chills. Patient stated that the chills started after she had her pubic infection in November 2015. Blood WBC 11,300. Creatinine 1.0. Urinalysis reported moderate leukocyte esterase and blood, microscope reported 5-10 WBCs 5-[address] abdomen and pelvis with contrast reported numerous diverticula in the sigmoid colon with what appeared to be dirty fat with small amount of free fluid in the dependent all the sac midline. And radiologist had concern of reinfected pubic symphysis. 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 Patient was started initially on Zosyn on day of admission. I counseled with Dr. Hammer, infectious disease specialist from [place] over the phone who recommended continuing Zosyn until pain improves, possibly 4-5 days. Then oral Levaquin 750 mg by mouth every 12 hours and Flagyl 500 mg by mouth every 8 hours for total of 14 days of antibiotics. Urine culture was done prior to starting the antibiotic and grew E.Coli which is sensitive to penicillin. Blood cultures was done next day after starting antibiotic and have no growth after 4 days. Patient was first on clear liquid diet then has been on soft diet for the last 2-3 days. She has been tolerating that very well. Yesterday patient's pain was improved and to this morning when patient complained of worsening of her abdominal pain and right flank pain. So CAT scan of abdomen and pelvis with oral and IV contrast was repeated but did not show any colitis/diverticulitis or any new acute findings. Later this afternoon I saw the patient again and she said she has been feeling much better and her pain is almost gone and she wants to be discharged home. During hospitalization patient denies fever, chills, nausea, vomiting, diarrhea, any new symptoms. Her energy is back to normal. She was discharged home on 10 days of Levaquin and Flagyl and follow up with primary care provider by early next week. - Discharge Data Discharge Date: 04/07/17 Discharge Disposition: Home, Self-Care 01 Condition: Good - Discharge Diagnosis/Problem(s) (1) Diverticulitis SNOMED Code(s): 342405038 ICD Code: K57.92 - DVTRCLI OF INTEST, PART UNSP, W/O PERF OR ABSCESS W/O BLEED Status: Acute Current Visit: Yes (2) HTN, Benign essential hypertension SNOMED Code(s): 8515929 ICD Code: I10 - ESSENTIAL (PRIMARY) HYPERTENSION Status: Chronic Current Visit: No (3) Atrial fibrillation SNOMED Code(s): 80525235 ICD Code: I48.91 - UNSPECIFIED ATRIAL FIBRILLATION Status: Chronic Current Visit: Yes (4) History of non-ST elevation myocardial infarction (NSTEMI) SNOMED Code(s): 184222262 ICD Code: I25.2 - OLD MYOCARDIAL INFARCTION Status: Chronic Current Visit : Yes (5) Hypokalemia SNOMED Code(s): 16142151 ICD Code: E87.6 - HYPOKALEMIA Status: Acute Current Visit: Yes - Patient Summary/Data Consults: Consultations 04/05/17 09:28 Consult to Physical Therapy [PT Evaluation and Treatment] [CONS] Routine - Patient Instructions Diet: Heart Healthy Diet Activity: As Tolerated Showering/Bathing: October Shower Notify Provider of: Fever, Increased Pain, Nausea and/or Vomiting - Discharge Plan Prescriptions/Med Rec: Acetaminophen/HYDROcodone [[place] 325-10 MG] 1 tab PO Q6H PRN #10 tablet PRN Reason: moderate to sever abd pain Levofloxacin [Levaquin] 750 mg PO Q12H 10 Days #20 tablet metroNIDAZOLE [Flagyl] 500 mg PO Q8H 10 Days #30 tablet Home Medications: Home Meds Diltiazem HCl [Cartia Xt] 180 mg PO DAILY 04/02/17 [History] Docusate Sodium 100 mg PO .EVERY OTHER DAY PRN 04/02/17 [History] Multivitamin [Multiple Vitamins] 1 each PO DAILY 04/02/17 [History] atorvaSTATin Calcium [Atorvastatin Calcium] 80 mg PO BEDTIME 04/02/17 [History] Acetaminophen/HYDROcodone [[place] 325-10 MG] 1 tab PO Q6H PRN #10 tablet [Rx] Levofloxacin [Levaquin] 750 mg PO Q12H 10 Days #20 tablet 10/31/17 [Rx] metroNIDAZOLE [Flagyl] 500 mg PO Q8H 10 Days #30 tablet 04/07/17 [Rx] - General Info Date of Service: 04/07/17 - Review of Systems General: Reports: No Symptoms HEENT: Reports: No Symptoms Pulmonary: Reports: No Symptoms Cardiovascular: Reports: No Symptoms Gastrointestinal: Denies: Constipation, Decreased Appetite, Diarrhea, Difficulty Swallowing Genitourinary: Reports: No Symptoms Musculoskeletal: Reports: No Symptoms Skin: Reports: No Symptoms Neurological: Reports: No Symptoms Psychiatric: Reports: No Symptoms - Patient Data Vitals - Most Recent: Last Vital Signs Temp 37.1 C 04/07/17 06:59 Pulse 71 04/07/17 06:59 Resp 20 04/07/17 06:59 BP 138/85 04/07/17 06:59 Pulse Ox 99 04/07/17 06:59 Weight - Most Recent: 111.13 kg I&O - Last 24 hours: Intake & Output 04/07/17 04/07/17 04/07/17 06:59 14:59 22:59 Intake Total 100 996 Balance 100 996 Lab Results - Last 24 hrs: Laboratory Results - last 24 hr 04/07/17 04/07/17 04/07/17 Range/Units 06:00 06:00 06:00 WBC 5.0 (5.0-10.0) 10^3/uL RBC 4.39 (4.2-5.4) 10^6/uL Hgb 12.4 D (12.0-16.0) g/dL Hct 37.9 (37.0-47.0) % MCV 86.3 (80-100) fL MCH 28.2 (27.0-34.0) pg MCHC 32.7 L (33.0-35.0) g/dL Plt Count 316 D (150-450) 10^3/uL Neut % (Auto) 55.3 (42.2-75.2) % Lymph % (Auto) 32.7 (20.5-50.1) % [place] % (Auto) 8.0 (2-8) % Eos % (Auto) 3.0 (1.0-3.0) % Baso % (Auto) 1.0 (0.0-1.0) % Sodium 140 (135-145) mmol/L Potassium 3.9 (3.6-5.0) mmol/L Chloride 104 (101-111) mmol/L Carbon Dioxide 27.0 (21.0-31.0) mmol/L Anion Gap 12.9 BUN 11 (7-18) mg/dL Creatinine 0.8 (0.6-1.3) mg/dL Est Cr Clr Drug Dosing 58.77 mL/min Estimated GFR (MDRD) > 60 BUN/Creatinine Ratio 13.75 Glucose 89 (74-105) mg/dL Calcium 9.3 (8.4-10.2) mg/dl Total Bilirubin 0.5 (0.2-1.0) mg/dL AST 21 (10-42) IU/L ALT 64 H (10-60) IU/L Alkaline Phosphatase 107 (42-121) IU/L C-Reactive Protein 1.2 (0.0-1.3) mg/dL Total Protein 6.5 L (6.7-8.2) g/dl Albumin 3.2 (3.2-5.5) g/dl Globulin 3.3 Albumin/Globulin Ratio 0.97 JOANIE Results - Last 24 hrs: Microbiology 04/03/17 09:15 Aerobic Blood Culture - Preliminary Blood - Venous - Lab Draw NO GROWTH AFTER 4 DAYS Anaerobic Blood Culture - Preliminary NO GROWTH AFTER 4 DAYS 04/03/17 09:10 Aerobic Blood Culture - Preliminary Blood - Venous NO GROWTH AFTER 4 DAYS Anaerobic Blood Culture - Preliminary NO GROWTH AFTER 4 DAYS Med Orders - Current: Current Medications Acetaminophen (Tylenol) 650 mg PO Q4H PRN PRN Reason: Pain (mild 1-3 )/fever Last Admin: 04/05/17 13:41 Dose: 650 mg Hydrocodone Bitart/Acetaminophen ([place] 325-10 Mg) 1 tab PO Q6H PRN PRN Reason: Pain (moderate 4-6) Atorvastatin Calcium (Lipitor) 80 mg PO BEDTIME [facility] Last Admin: 04/06/17 20:12 Dose: 80 mg Bisacodyl (Dulcolax) 10 mg RECTAL DAILY PRN PRN Reason: Constipation Diltiazem HCl (Cardizem Cd) 180 mg PO DAILY [facility] Last Admin: 04/07/17 10:07 Dose: 180 mg Docusate Sodium (Colace) 100 mg PO Q48H PRN PRN Reason: Constipation Enoxaparin Sodium (Lovenox) 40 mg SUBCUT DAILY [facility] Last Admin: 04/07/17 10:07 Dose: 40 mg Piperacillin Sod/Tazobactam (Sod 3.375 gm/ Sodium Chloride) 100 mls @ 200 mls/ hr IV Q6H [facility] Last Infusion: 04/07/17 15:00 Dose: Infused Multivitamins (Thera) 1 each PO DAILY [facility] Last Admin: 04/07/17 10:07 Dose: 1 each Oxycodone HCl (Oxycodone) 5 mg PO Q4H PRN PRN Reason: Abdominal Pain Last Admin: 04/06/17 02:35 Dose: 5 mg Sodium Chloride (Saline Flush) 10 ml FLUSH ASDIRECTED PRN PRN Reason: Keep Vein Open Last Admin: 04/07/17 14:18 Dose: 10 ml Discontinued Medications Barium Sulfate (Readi-Cat 2) 900 ml PO ONETIME ONE Stop: 04/07/17 08:34 Last Admin: 04/07/17 11:11 Dose: 900 ml Piperacillin Sod/Tazobactam (Sod 3.375 gm/ Sodium Chloride) 100 mls @ 200 mls/ hr IV Q6H [facility] Last Infusion: 04/02/17 20:40 Dose: Infused Iopamidol (Isovue-300 (61%)) 100 ml IVPUSH ONETIME ONE Stop: 04/07/17 07:45 Last Admin: 04/07/17 11:11 Dose: 100 ml Lorazepam (Ativan) 0.5 mg PO ONETIME ONE Stop: 04/03/17 07:16 Last Admin: 04/03/17 07:09 Dose: 0.5 mg Morphine Sulfate (Morphine) 2 mg IVPUSH Q4H PRN PRN Reason: Pain Last Admin: 04/02/17 19:41 Dose: 2 mg Oxycodone HCl (Oxycodone) 5 mg PO Q4H PRN PRN Reason: Abdominal Pain Last Admin: 04/03/17 12:44 Dose: 5 mg Potassium Chloride (Klor-Con 10) 40 meq PO ONETIME ONE Stop: 04/03/17 11:49 Last Admin: 04/03/17 12:45 Dose: 40 meq - Exam General: Reports: Alert, Oriented, Cooperative, No Acute Distress. Denies: Mild Distress, Moderate Distress, Severe Distress, Sedated, Lethargic, Obtunded HEENT: Reports: Pupils Equal, Pupils Reactive, EOMI, Mucous Membr. Moist/[place] Neck: Reports: Supple, Trachea Midline, No JVD Lungs: Reports: Clear to Auscultation, Normal Respiratory Effort Cardiovascular: Reports: Regular Rate, Regular Rhythm GI/Abdominal Exam: Normal Bowel Sounds, Soft, No Organomegaly, No Distention, No Abnormal Bruit, No Mass, Tender (Mild generalized abdominal tenderness with deep palpation). No: Guarding, Rigid, Rebound (Female) Exam: Deferred Rectal (Female) Exam: Deferred Back Exam: Reports: Normal Inspection, Full Range of Motion, CVA Tenderness (R) (Mild). Denies: CVA Tenderness (L) Extremities: Normal Inspection, Normal Range of Motion, Non-Tender, No Pedal Edema, Normal Capillary Refill Skin: Reports: Dry, Intact. Denies: Rash Neurological: Reports: No New Focal Deficit Psy/Mental Status: Reports: Alert, Normal Affect, Normal Mood *Q Meaningful Use (DIS) - VTE *Q VTE Criteria *Q: - Stroke *Q Stroke Criteria *Q: - AMI *Q AMI Criteria *Q:
== END 2017-04-07 16:00 | disposition home or self-care (01) | DRG 392 ==
LOC: UNDOADMIN 17:25 → DL.MS 17:25
PROVIDERS: ADMIT Internal Medicine; ATTEND Internal Medicine
DX: K57.32 Diverticulitis of large intestine without perforation or abscess without bleeding (principal); N39.0 Urinary tract infection, site not specified; Z68.41 Body mass index [BMI] 40.0-44.9, adult; I10 Essential (primary) hypertension; I48.91 Unspecified atrial fibrillation; I25.2 Old myocardial infarction; I25.10 Atherosclerotic heart disease of native coronary artery without angina pectoris; E87.6 Hypokalemia; M85.38 Osteitis condensans, other site; E66.01 Morbid (severe) obesity due to excess calories; B96.20 Unspecified Escherichia coli [E. coli] as the cause of diseases classified elsewhere; Z79.899 Other long term (current) drug therapy; Z79.891 Long term (current) use of opiate analgesic
CPT/HCPCS: 36415; 72195; 74177; 80048; 80053; 85025; 85027; 85651; 86140; 87040; 87086; 87088; 87186; 97161-GP; A9270-GY; J1650; J2270; J2543; J7050; Q9967

== ENCOUNTER 2017-06-19 10:14 | Emergency (ER) | payer OTHER ==
--- NOTE | 2017-06-19 10:23 | EDM.PDOC ---
ED HPI GENERAL MEDICAL PROBLEM - General Chief Complaint: Gastrointestinal Problem Stated Complaint: ABD PAIN, [id number] Time Seen by Provider: 06/19/17 10:23 Source of Information: Reports: Patient, Old Records, Provider (Es GAONA), RN, RN Notes Reviewed History Limitations: Reports: No Limitations - History of Present Illness INITIAL COMMENTS - FREE TEXT/NARRATIVE: Arrives from clinic, sent by Es GAONA with pt c/o RUQ abdominal pain that began approx. 10PM last night. She describes the pain as a constant ache that radiates up to the right shoulder blade area of her back, and recurrently builds in intensity with a sharp, twisting, crampy feeling until it is nearly intolerable, the suddenly releases back to the baseline ache. Denies fever, chills, N/V/D/C, urinary Sx's, chest pain, cough, or change in bowel habits. Onset Date: 06/18/17 Onset Time: 22:00 Duration: Constant, Getting Worse Location: Reports: Abdomen Quality: Reports: Ache Severity: Severe Improves with: Reports: None Worsens with: Reports: None Associated Symptoms: Reports: No Other Symptoms Abdomen Pain Score (Numeric/FACES): 8 - Related Data Allergies Allergy/AdvReac Type Severity Reaction Status Date / Time No Known Allergies Allergy Verified 06/19/17 10:29 Home Meds: Home Meds Diltiazem HCl [Cartia Xt] 180 mg PO DAILY 04/02/17 [History] Multivitamin [Multiple Vitamins] 1 each PO DAILY 04/02/17 [History] atorvaSTATin Calcium [Atorvastatin Calcium] 80 mg PO BEDTIME 04/02/17 [History] Acetaminophen/HYDROcodone [[place] 325-10 MG] 1 tab PO Q6H PRN #10 tablet [Rx] Past Medical History - Past Health History Medical/Surgical History: Denies Medical/Surgical History HEENT History: Reports: Impaired Vision Cardiovascular History: Reports: Afib, High Cholesterol, PR, Other (See Below) Other Cardiovascular History: states she has a heart flutter Gastrointestinal History: Reports: Diverticulosis Musculoskeletal History: Reports: Arthritis Endocrine/Metabolic History: Reports: Obesity/BMI 30+ Oncologic (Cancer) History: Reports: Other (See Below) Other Oncologic History: growth that was noted above to be removed a "very long time ago" - Infectious Disease History Infectious Disease History: Reports: Other (See Below) (Osteomyelitis of the pubic bone) - Past Surgical History HEENT Surgical History: Reports: Cataract Surgery Cardiovascular Surgical History: Reports: Percutaneous Transluminal Angioplasty GI Surgical History: Reports: Bariatric Procedure, Cholecystectomy Musculoskeletal Surgical History: Reports: Other (See Below) Other Musculoskeletal Surgeries/Procedures:: neck surgery to remove cancerous growth Social & Family History - Family History Family Medical History: Noncontributory Cardiac: Reports: Heart Failure (father) Other Cardiac Family History: CHF GI: Reports: Other (See Below) (Crohns disease, sister) Musculoskeletal: Reports: Arthritis - Tobacco Use Smoking Status *Q: Never Smoker Second Hand Smoke Exposure: No - Caffeine Use Caffeine Use: Reports: Soda - Recreational Drug Use Recreational Drug Use: No - Sexual History Sexual History: Reports: None - Living Situation & Occupation Living situation: Reports: Single, with Family Occupation: Disabled ED ROS GENERAL - Review of Systems Review Of Systems: ROS reveals no pertinent complaints other than HPI. ED EXAM, GI/ABD - Physical Exam Exam: See Below Exam Limited By: No Limitations General Appearance: Alert, No Apparent Distress, Obese Eyes: Bilateral: Normal Appearance Ears: Hearing Grossly Normal Nose: Normal Inspection Throat/Mouth: Normal Inspection, Normal Lips, Normal Teeth, Normal Gums, Normal Oropharynx, Normal Voice, No Airway Compromise Head: Atraumatic, Normocephalic Neck: Normal Inspection, Supple, Non-Tender, Full Range of Motion Respiratory/Chest: No Respiratory Distress, Lungs Clear, Normal Breath Sounds, No Accessory Muscle Use, Chest Non-Tender Cardiovascular: Regular Rate, Rhythm GI/Abdominal Exam: Normal Bowel Sounds, Soft, No Distention, Guarding (at RUQ), Tender (RUQ and epigastric regions), Other (abdominal exam is limited by severe obesity). No: Rigid, Rebound (Female) Exam: Deferred Rectal (Female) Exam: Deferred Back Exam: Normal Inspection Extremities: Normal Range of Motion, Non-Tender Neurological: Alert, Oriented, CN II-XII Intact, Normal Cognition, No Motor/ Sensory Deficits Psychiatric: Normal Affect, Normal Mood Skin Exam: Warm, Dry, Intact, Normal Color, No Rash Course - Vital Signs Last Recorded V/S: Last Vital Signs Temp 36.8 C 06/19/17 11:51 Pulse 58 L 06/19/17 11:51 Resp 16 01/12/18 11:51 BP 144/57 H 06/19/17 11:51 Pulse Ox 95 06/19/17 11:51 - Orders/Labs/Meds Orders: Active Orders 24 hr Category Date Time Status Peripheral IV Care [RC] . DIRECTED Care 06/19/17 10:40 Active Abdomen Pelvis w Cont [CT] Urgent Exams 06/19/17 11:17 Taken UA W/MICROSCOPIC [URIN] Stat Lab 06/19/17 10:39 Uncollected Sodium Chloride 0.9% [Normal Saline] 1,000 ml Med 06/19/17 10:45 Active IV ASDIRECTED Sodium Chloride 0.9% [Saline Flush] Med 06/19/17 10:38 Active 10 ml FLUSH ASDIRECTED PRN Peripheral IV Insertion Adult [OM.PC] Stat Oth 06/19/17 10:39 Ordered Medication Orders Sodium Chloride (Normal Saline) 1,000 mls @ 50 mls/hr IV ASDIRECTED [place] Stop: 06/23/17 10:41 Last Admin: 06/19/17 10:52 Dose: 50 mls/hr Sodium Chloride (Saline Flush) 10 ml FLUSH ASDIRECTED PRN PRN Reason: Keep Vein Open Last Admin: 06/19/17 10:51 Dose: 10 ml Labs: Laboratory Tests 06/19/17 06/19/17 06/19/17 Range/Units 10:48 10:48 10:48 WBC 6.7 (5.0-10.0) 10^3/uL RBC 4.28 (4.2-5.4) 10^6/uL Hgb 11.9 L (12.0-16.0) g/dL Hct 36.4 L (37.0-47.0) % MCV 85.0 (80-100) fL MCH 27.8 (27.0-34.0) pg MCHC 32.7 L (33.0-35.0) g/dL Plt Count 252 (150-450) 10^3/uL Neut % (Auto) 75.2 (42.2-75.2) % Lymph % (Auto) 15.7 L (20.5-50.1) % [place] % (Auto) 7.5 (2-8) % Eos % (Auto) 1.0 (1.0-3.0) % Baso % (Auto) 0.6 (0.0-1.0) % Sodium 137 (135-145) mmol/L Potassium 3.8 (3.6-5.0) mmol/L Chloride 105 (101-111) mmol/L Carbon Dioxide 23.0 (21.0-31.0) mmol/L Anion Gap 12.8 BUN 15 (7-18) mg/dL Creatinine 0.7 (0.6-1.3) mg/dL Est Cr Clr Drug Dosing 66.28 mL/min Estimated GFR (MDRD) > 60 BUN/Creatinine Ratio 21.42 Glucose 91 (74-105) mg/dL Lactic Acid 1.0 (0.5-2.2) mmol/L Calcium 8.7 (8.4-10.2) mg/dl Total Bilirubin 0.2 (0.2-1.0) mg/dL AST 14 (10-42) IU/L ALT 8 L (10-60) IU/L Alkaline Phosphatase 108 (42-121) IU/L Total Protein 6.6 L (6.7-8.2) g/dl Albumin 3.4 (3.2-5.5) g/dl Globulin 3.2 Albumin/Globulin Ratio 1.06 Amylase 57 (28-100) U/L Lipase 25 (22-51) U/L Meds: Medications Generic Name Dose Route Start Last Admin Trade Name Freq PRN Reason Stop Dose Admin Sodium Chloride 1,000 mls @ 50 mls/hr 06/19/17 10:45 06/19/17 10:52 Normal Saline IV 06/23/17 10:41 50 mls/hr ASDIRECTED [place]IEGO Administration Sodium Chloride 10 ml 06/19/17 10:38 06/19/17 10:51 Saline Flush FLUSH 10 ml ASDIRECTED PRN Administration Keep Vein Open Discontinued Medications Generic Name Dose Route Start Last Admin Trade Name Freq PRN Reason Stop Dose Admin Al Hydroxide/Mg Hydroxide 30 ml 06/19/17 12:39 06/19/17 12:45 Gi Cocktail PO 06/19/17 12:40 30 ml ONETIME ONE Administration Hydromorphone HCl 1 mg 06/19/17 10:40 06/19/17 10:52 Dilaudid IVPUSH 06/19/17 10:41 1 mg ONETIME ONE Administration Hydromorphone HCl 1 mg 06/19/17 11:22 06/19/17 11:27 Dilaudid IVPUSH 06/19/17 11:23 1 mg ONETIME ONE Administration Iopamidol 100 ml 06/19/17 11:17 06/19/17 11:38 Isovue-300 (61%) IVPUSH 06/19/17 11:18 100 ml ONETIME ONE Administration Ondansetron HCl 4 mg 06/19/17 10:40 06/19/17 10:50 Zofran IV 06/19/17 10:41 4 mg ONETIME ONE Administration Ondansetron HCl 4 mg 06/19/17 12:41 06/19/17 12:45 Zofran IV 06/19/17 12:42 4 mg ONETIME ONE Administration Pantoprazole Sodium 40 mg 06/19/17 12:39 06/19/17 12:45 Protonix Iv IVPUSH 06/19/17 12:40 40 mg ONETIME ONE Administration - Radiology Interpretation Free Text/Narrative:: CT ABD/PELVIS W/CONTRAST: IMPRESSION: 1. Biliary dilatation, increase since previous examination, may be progression post cholecystectomy but with right upper quadrant pain, correlate obstructive biliary symptoms. 2. Stable left adrenal nodule, probably adenoma. 3. Sigmoid diverticulosis, no acute diverticulitis. 4. Probable osteitis pubis, unchanged. 5. Remaining findings as above. CT Results Date: 06/19/17 - Re-Assessments/Exams Free Text/Narrative Re-Assessment/Exam: 06/19/17 12:[address] Red (gen. surg.). Given the Hx, exam findings, lab & CT Abd/Pelvis results, he feels that the most likely cause of pain in a pt w/ remote gastric bypass who is not on PPI is a marginal ulcer. Pt will be started on oral PPI tx. Es GAONA informed of the findings and surgeon's recommendations. She agrees to f/u with the pt for recheck and referral for upper endoscopy. Departure - Departure Time of Disposition: 12:51 Disposition: Home, Self-Care 01 Condition: Fair Clinical Impression: Abdominal pain Qualifiers: Abdominal location: right upper quadrant Qualified Code(s): R10.11 - Right upper quadrant pain Gastric ulcer Qualifiers: Gastric ulcer chronicity: acute Gastric ulcer complication status: without hemorrhage or perforation Qualified Code(s): K25.3 - Acute gastric ulcer without hemorrhage or perforation - Discharge Information Instructions: Abdominal Pain, Adult, [id number], Peptic Ulcer Forms: ED Department Discharge Additional Instructions: Rx: Omeprazole 20mg Rx: Zofran 4mg Follow up with Es GAONA for recheck and referral for endoscopy. Return to ER if worse at any time. - My Orders Last 24 Hours: My Active Orders 06/19/17 10:38 Sodium Chloride 0.9% [Saline Flush] 10 ml FLUSH ASDIRECTED PRN 06/19/17 10:39 UA W/MICROSCOPIC [URIN] Stat Peripheral IV Insertion Adult [OM.PC] Stat 06/19/17 10:40 Peripheral IV Care [RC] . DIRECTED 06/19/17 10:45 Sodium Chloride 0.9% [Normal Saline] 1,000 ml IV ASDIRECTED 06/19/17 11:17 Abdomen Pelvis w Cont [CT] Urgent - Assessment/Plan Last 24 Hours: My Active Orders 06/19/17 10:38 Sodium Chloride 0.9% [Saline Flush] 10 ml FLUSH ASDIRECTED PRN 06/19/17 10:39 UA W/MICROSCOPIC [URIN] Stat Peripheral IV Insertion Adult [OM.PC] Stat 06/19/17 10:40 Peripheral IV Care [RC] . DIRECTED 06/19/17 10:45 Sodium Chloride 0.9% [Normal Saline] 1,000 ml IV ASDIRECTED 06/19/17 11:17 Abdomen Pelvis w Cont [CT] Urgent
[2017-06-19] MEDS ORDERED: Ondansetron 4 MG/2 ML SDV IV ONE ×2 (10:40→12:41)
[2017-06-19] MEDS ORDERED: HYDROmorphone 1 MG/ML Syringe IVPUSH ONE ×2 (10:40→11:22)
[2017-06-19] MEDS ORDERED: Sodium Chloride 0.9% 1,000 ML IV SCH (10:45)
[2017-06-19] MEDS: Sodium Chloride 0.9% 10 ML Syringe FLUSH PRN ×2 (10:51→12:48)
[2017-06-19 11:15] LABS: ANION GAP 12.8; CHLORIDE,CL 105 mmol/L (101-111); SODIUM,NA 137 mmol/L (135-145)
[2017-06-19] MEDS ORDERED: Iopamidol 612 MG/ML 100 ML Bottle IVPUSH ONE (11:17)
[2017-06-19] MEDS ORDERED: Pantoprazole 40 MG Vial IVPUSH ONE (12:39)
[2017-06-19] MEDS ORDERED: GI Cocktail Oral Solution 30 ML PO ONE (12:39)
[2017-06-19 12:55] VITALS: BP 112/66
== END 2017-06-19 13:11 | disposition home or self-care (01) ==
LOC: DL.ED 10:14
DX: K25.3 Acute gastric ulcer without hemorrhage or perforation (principal); E78.00 Pure hypercholesterolemia, unspecified; Z79.899 Other long term (current) drug therapy
CPT/HCPCS: 36415; 74177; 80053; 81001; 82150; 83605; 83690; 85025; 96361; 96374; 96375; 96376; 99284; A9270; C9113; J1170; J2405; J7030; J7050; Q9967

== ENCOUNTER 2022-06-18 13:11 | Emergency (ER) | payer BC, MEDICARE, OTHER ==
[2022-06-18 15:39] LABS: CORONAVIRUS COVID-19 NAA NEGATIVE (NEGATIVE); RESPIRATORY SYNCYTIAL VIR NAA NEGATIVE (NEGATIVE)
[2022-06-18 15:51] LABS: ANION GAP 14.6 mEq/L (7-13)
== END 2022-06-18 16:45 | disposition home or self-care (01) ==
LOC: DL.ED 13:11
DX: R55 Syncope and collapse (principal); I48.91 Unspecified atrial fibrillation; E78.00 Pure hypercholesterolemia, unspecified; I25.2 Old myocardial infarction; E66.9 Obesity, unspecified; Z68.43 Body mass index [BMI] 50.0-59.9, adult; Z79.899 Other long term (current) drug therapy; Z20.822 Contact with and (suspected) exposure to COVID-19
CPT/HCPCS: 0241U; 36415; 71045; 80053; 82150; 83690; 83735; 84484; 85025; 93005; 99285

== ENCOUNTER 2022-10-03 19:07 | Emergency (ER) | payer MEDICARE ==
[2022-10-03 19:52] VITALS: BP 160/101; PULSE 79
[2022-10-03] MEDS: Sodium Chloride 0.9% 10 ML Syringe FLUSH PRN ×2 (20:05→20:48)
[2022-10-03] MEDS ORDERED: Ondansetron 4 MG/2 ML SDV IVPUSH ONE (20:24)
[2022-10-03] MEDS ORDERED: Pantoprazole 40 MG Vial IVPUSH ONE (20:28)
[2022-10-03] MEDS ORDERED: Ketorolac 30 MG/ML SDV IVPUSH ONE (20:28)
[2022-10-03] MEDS ORDERED: Sodium Chloride 0.9% 1,000 ML IV SCH (20:30)
[2022-10-03] MEDS ORDERED: Iopamidol 612 MG/ML 100 ML Bottle IVPUSH ONE (20:30)
[2022-10-03] MEDS ORDERED: Iopamidol 612 MG/ML 50 ML SDV IVPUSH ONE ×2 (20:30→20:56)
[2022-10-03] MEDS ORDERED: Iopamidol 755 Mg/ML 100 ML Bottle IVPUSH ONE (20:30)
[2022-10-03 20:52] LABS: ANION GAP 15.2 mEq/L (7-13)
== END 2022-10-03 23:40 | disposition home or self-care (01) ==
LOC: DL.ED 19:07
DX: R10.13 Epigastric pain (principal); I48.91 Unspecified atrial fibrillation; E78.00 Pure hypercholesterolemia, unspecified; E66.9 Obesity, unspecified; Z68.44 Body mass index [BMI] 60.0-69.9, adult; Z79.899 Other long term (current) drug therapy
CPT/HCPCS: 36415; 74177; 80053; 83690; 84484; 85025; 93005; 96361; 96374; 96375; 99284; C9113; J1885; J2405; J7030; Q9967; J3490